=== PATIENT | male | born 1940 | race Caucasian/White ===

== ENCOUNTER → 2023-04-07 12:23 | Outpatient (REF) | payer MEDICARE, SELFPAY ==
[2023-04-07 14:06] LABS: Magnesium 2.3 mg/dl (1.6-2.3)
[2023-04-07 14:37] LABS: TSH Reflex To Free T4 2.06 uIU/ml (0.47-4.68)
[2023-04-07 15:13] LABS: Folate > 20.0 ng/ml (2.76-20); Vitamin B12 858 pg/ml (239-931)
== END ==
LOC: REG 12:23
PROVIDERS: ATTENDING PHYSICIAN Physician Assistant
DX: R25.2 Cramp and spasm (principal)
CPT/HCPCS: 36415; 82607; 82746; 83735; 84443

== ENCOUNTER 2023-04-13 06:33 | Inpatient (IN) | payer MEDICARE, SELFPAY ==
--- NOTE | 2023-03-11 11:00 | CM ---
.
Patient is scheduled for an elective L THR on 04/13/23. Spoke with patient prior to surgery via telephone. Introduced role of Orthopedic Navigator. Patient reports that she lives with his in a two story home. There are two steps to enter and a
flight of steps to the second floor. There is a bedroom and bathroom on the data entry supervisor. He currently functions independently. He uses a cane and rolling walker. He also has a wheel chair. He has never had VN services. PCP is Dr. Colin Cortes.
Discussed orthopedic program and post surgical plans. Reviewed anticipated length of stay and that goal is for him to return home at discharge. Also reviewed outpatient PT. Patient is in agreement with tentative plan and will go directly to
outpatient PT at [facility]. He will have support from his when he goes home.
Patient will complete online education.
Plan: Orthopedic Navigator will remain available to assist with the care of patient and will reassess discharge needs after surgery.
[2023-03-23 12:35] VITALS: BMI 24.0
[2023-03-23 13:56] LABS: Hematocrit 40.2 % (39.0-52.0); Hemoglobin 13.4 g/dL (13.0-18.0); Mean Corp Hgb Conc. 33.3 g/dL (33.0-37.0); Mean Corpuscular Volume 90.1 fL (80.0-94.0); Mean Platelet Volume 9.6 fL (7.4-10.4); Platelet Count 210 10^3/uL (130-400); Red Blood Cell Count 4.46 10^6/uL (4.70-6.10); Red Cell Dist. Width 13.5 % (11.5-14.5); White Blood Cell Count 6.4 10^3/uL (4.8-10.8)
[2023-03-23 14:04] LABS: ALT (SGPT) 40 U/L (0-50); AST (SGOT) 42 U/L (17-59); Albumin 4.3 g/dl (3.5-5.0); Alkaline Phosphatase 78 U/L (38-126); Blood Urea Nitrogen 16 mg/dl (9-20); Calcium 9.5 mg/dl (8.4-10.2); Carbon Dioxide 29 mmol/L (22-30); Chloride 99 mmol/L (98-107); Estimated Creatinine Clearance 86 ml/min; Glucose 83 mg/dl (70-99); Potassium 4.3 mmol/L (3.5-5.1); Sodium 136 mmol/L (135-145); Total Bilirubin 0.7 mg/dl (0.2-1.3); Total Protein 6.7 g/dl (6.3-8.2); eGFR > 60.00
[2023-03-23 15:11] VITALS: BMI 24.0
[2023-04-13] VITALS (11 sets, daily range): BP systolic 93–156; BP diastolic 57–83; PULSE 71–72; O2SAT 98; BMI 24.0; BMI 25.4
[2023-04-13] MEDS: TYLENOL 650 MG PO ×4 (07:40→20:06)
[2023-04-13] MEDS: CELEBREX 200 MG PO (07:40)
[2023-04-13] MEDS: NORMOSOL-R 1000 IV ×2 (08:11→11:49)
[2023-04-13] MEDS: ROXICODONE 5 MG PO (11:52)
[2023-04-13] MEDS: ASPIRIN 325 MG PO (17:43)
[2023-04-13] MEDS: ANCEF 5 IV (17:43)
[2023-04-13] MEDS: TORADOL 15 MG IV (20:05)
[2023-04-13] MEDS: PEPCID 20 MG PO (20:05)
[2023-04-13] MEDS: COLACE 100 MG PO (20:06)
[2023-04-13] MEDS: BACTROBAN 2% OINTMENT 1 APPLIC NASAL (20:06)
[2023-04-13] MEDS: DECADRON 4 MG PO (20:06)
[2023-04-13] MEDS: SENOKOT 17.1999999999999993 MG PO (20:06)
[2023-04-14] MEDS: ANCEF 5 IV (00:33)
[2023-04-14] MEDS: TYLENOL 650 MG PO ×4 (00:33→12:57)
[2023-04-14] MEDS: ROXICODONE 5 MG PO (01:32)
[2023-04-14 03:08] VITALS: BP 121/75
[2023-04-14] MEDS: ROXICODONE 10 MG PO (05:54)
[2023-04-14 06:00] VITALS: BMI 23.5
[2023-04-14 07:12] VITALS: BP 147/84
[2023-04-14] MEDS: CELEBREX 200 MG PO (07:55)
[2023-04-14] MEDS: TORADOL 15 MG IV (07:55)
[2023-04-14] MEDS: DECADRON 4 MG PO (07:55)
[2023-04-14] MEDS: SENOKOT 17.1999999999999993 MG PO (07:55)
[2023-04-14] MEDS: ASPIRIN 325 MG PO (07:56)
[2023-04-14] MEDS: BACTROBAN 2% OINTMENT 1 APPLIC NASAL (07:56)
[2023-04-14] MEDS: COLACE 100 MG PO (07:57)
--- NOTE | 2023-04-14 11:35 | W.PN.ORTHO ---
Today's Communication / Plan
-
d/c
Assessment
.
Distal Motor Intact: Yes
Dressing:
Clean, dry and intact.
Plan
.
Surgery / Date: Stan Lutz 04/13/23
DVT Prophylaxis: Aspirin
Activity:
Out of bed.
PT/OT
Discharge Plan: Home w/ Outpatient PT
Subjective
.
.:
Patient resting comfortably.
Vital Signs and Labs
.
Vital Signs and Labs:
Lab Results
03/23/23 12:16
03/23/23 12:16
Temp Pulse Resp BP Pulse Ox
97.6 F 65 17 147/84 98
04/14/23 07:12 04/14/23 07:12 04/14/23 07:12 04/14/23 07:12 04/14/23 07:12
Non-invasive Hgb result: 12.7
Physical Exam
-
HEENT: No pallor, cyanosis, or jaundice. Throat clear.
NECK: Supple. No JVD.
RESPIRATORY: Lungs clear to auscultation.
CVS: S1, S2 normal. RRR.� No murmur, rub or gallop.
ABDOMEN: Soft, non-tender. No distension. BS+/normal.
EXTREMITIES: strength equal, no calf pain with palpation
DIRECTOR OF PHILANTHROPY: AOx3. No focal deficits. asian art curator grossly intact
--- NOTE | 2023-04-14 11:41 | W.DS.TRANS ---
DC Summary - Community Engagement Leader
-
Discharge Instructions:
Sleep Apnea Risk Intermediate
Discharge Diagnosis/Procedures L MADDIE Dr. Lutz 04/13/23
Diet Diabetic, Carb Controlled
Activity With Walker
Driving Restrictions No driving
Bathing Restrictions OK to Shower
Other Services PT
Instructions:
Stand-Alone Forms: Total Hip/Knee Replacement D/C
Changes to Home Medications: Yes
Discharge Medications:
DC Medications w/original date entered in [facility]
gatifloxacin 0.5 % eye drops 1 drp ophthalmic (eye) Q4D 06/27/20
loteprednol etabonate 0.2 % eye drops,suspension (Alrex) 1 drp OPHTHALMIC Q4D 06/27/20
naproxen sodium 220 mg tablet (Aleve) 220 mg PO QPM PRN pain 06/27/20
vit C 250 mg-vit E 90 mg-zinc 40 mg-copper 1 [id number] capsule (PreserVision AREDS-2) 1 ea PO BID 06/27/20
cholecalciferol (vitamin D3) 25 mcg (1,000 unit) capsule (Vitamin D3) 25 mcg PO DAILY 03/19/23
mupirocin 2 % topical ointment 1 applic topical BID infection prevention #1 tube 03/23/23
Ocusoft 1 applic DAILY 04/13/23
Refresh [place] 3 1 applic BOTH EYES DAILY 04/13/23
Retain Mga Eye Drop 1 applic BOTH EYES DAILY 04/13/23
acetaminophen 325 mg capsule (Tylenol) 650 mg PO QID #2 caps 04/14/23
acetaminophen 500 mg tablet 1,000 mg PO QID scheduled dosing #0 tabs 04/14/23
aspirin 325 mg tablet 325 mg PO DAILY blood clot prevention #1 tab 04/14/23
docusate sodium 100 mg capsule (Colace) 100 mg PO BID stool softner #1 cap 04/14/23
famotidine 20 mg tablet 20 mg PO HS GI prophylaxis #30 tabs 04/14/23
gabapentin 300 mg capsule 300 mg PO HS sleep/pain #10 caps 04/14/23
magnesium hydroxide 400 mg/5 mL oral suspension (Milk of Magnesia) 30 ml PO HS PRN Constipation #1 mL 04/14/23
meloxicam 15 mg tablet 15 mg PO DAILY anti-inflammatory #14 tabs 04/14/23
oxycodone 5 mg tablet 5 - 10 mg PO Q6HPRN PRN 1 tab moderate-2 tabs severe pain #30 tabs 04/14/23
sennosides 8.6 mg tablet (Senokot) 17.2 mg PO BID laxative #2 tabs 04/14/23
Home Medication Changes
famotidine 20 mg tablet 20 mg PO HS GI prophylaxis #30 tabs 04/14/23
gabapentin 300 mg capsule 300 mg PO HS sleep/pain #10 caps 04/14/23
meloxicam 15 mg tablet 15 mg PO DAILY anti-inflammatory #14 tabs 04/14/23
oxycodone 5 mg tablet 5 - 10 mg PO Q6HPRN PRN 1 tab moderate-2 tabs severe pain #30 tabs 04/14/23
Pending Results: No
[2023-04-14 12:00] VITALS: BP 136/74; PULSE 57; O2SAT 99
[2023-04-14 13:10] VITALS: BP 122/62; PULSE 58; O2SAT 97
--- NOTE | 2023-04-14 14:07 | CM ---
Reviewed chart and held rounds with PT, OT and nursing. Patient admitted as planned for elective L THR. Met with patient at bedside. Confirmed information previously obtained for assessment. Also discussed discharge plans. The plan is for patient to
return home at discharge. He will have support from his when he goes home. Patient will go directly to outpatient PT and will go to [facility]. He has an appointment scheduled for Saturday 04/15.. Reviewed need to schedule appointment with PA at
Dr. Lutz office in two weeks for removal of roxy.
Patient has a rolling walker, savita, w/c.
He will use [facility] for discharge prescriptions.
== END 2023-04-14 15:23 | disposition home or self-care (01) | DRG 470 ==
LOC: 2 SOUTH 06:33
PROVIDERS: ADMITTING PHYSICIAN Specialist; FAMILY PHYSICIAN Family Medicine
PROC: 0SRB04A Replacement of Left Hip Joint with Ceramic on Polyethylene Synthetic Substitute, Uncemented, Open Approach (ICD-10-PCS; 2023-04-13)
DX: M16.12 Unilateral primary osteoarthritis, left hip (principal); I50.32 Chronic diastolic (congestive) heart failure; I77.819 Aortic ectasia, unspecified site; E78.5 Hyperlipidemia, unspecified; I11.0 Hypertensive heart disease with heart failure; R73.03 Prediabetes; M51.36 Other intervertebral disc degeneration, lumbar region; I48.0 Paroxysmal atrial fibrillation; Z85.820 Personal history of malignant melanoma of skin; Z95.0 Presence of cardiac pacemaker; Z87.74 Personal history of (corrected) congenital malformations of heart and circulatory system; Z95.2 Presence of prosthetic heart valve
CPT/HCPCS: 36415; 73502; 80053; 83036; 85027; 87070; 97110; 97116; 97162; 97167; 97530; 97535; C1713; C1776

== ENCOUNTER → 2023-10-26 08:28 | Outpatient (REF) | payer MEDICARE, SELFPAY | LOC: RAD 08:28 | PROVIDERS: ATTENDING PHYSICIAN Internal Medicine Cardiovascular Disease; FAMILY PHYSICIAN Family Medicine | DX: I77.819 Aortic ectasia, unspecified site (principal); I77.0 Arteriovenous fistula, acquired | CPT/HCPCS: 93931 ==

== ENCOUNTER → 2023-11-20 10:45 | Outpatient (REF) | payer MEDICARE, SELFPAY ==
[2023-11-20 12:07] LABS: Blood Urea Nitrogen 19 mg/dl (9-20); Calcium 9.8 mg/dl (8.4-10.2); Carbon Dioxide 22 mmol/L (22-30); Chloride 103 mmol/L (98-107); Glucose 99 mg/dl (70-99); Potassium 4.8 mmol/L (3.5-5.1); Sodium 139 mmol/L (135-145); eGFR > 60.00
== END ==
LOC: REG 10:45
PROVIDERS: ATTENDING PHYSICIAN Surgery Vascular Surgery; PRIMARYCARE PHYSICIAN Family Medicine
DX: R22.1 Localized swelling, mass and lump, neck (principal)
CPT/HCPCS: 36415; 80048

== ENCOUNTER → 2023-11-25 11:34 | Outpatient (REF) | payer MEDICARE, SELFPAY | LOC: HWRAD 11:34 | PROVIDERS: ATTENDING PHYSICIAN Surgery Vascular Surgery; FAMILY PHYSICIAN Family Medicine; REFERRING PHYSICIAN Internal Medicine Cardiovascular Disease | DX: R22.1 Localized swelling, mass and lump, neck (principal) | CPT/HCPCS: 71275; Q9967 ==

== ENCOUNTER → 2023-12-11 06:37 | Outpatient (REF) | payer MEDICARE, SELFPAY | LOC: RAD 06:37 | PROVIDERS: ATTENDING PHYSICIAN Internal Medicine Cardiovascular Disease; FAMILY PHYSICIAN Family Medicine | DX: I77.819 Aortic ectasia, unspecified site (principal) | CPT/HCPCS: 76770 ==

== ENCOUNTER → 2024-09-05 10:46 | Outpatient (REF) | payer MEDICARE, SELFPAY ==
[2024-09-05 12:13] LABS: Hematocrit 43.3 % (39.0-52.0); Hemoglobin 14.3 g/dL (13.0-18.0); Mean Corp Hgb Conc. 33.0 g/dL (33.0-37.0); Mean Corpuscular Volume 91.5 fL (80.0-94.0); Nucleated Red Blood Cells % 0 % (-); Platelet Count 222 10^3/uL (130-400); Red Cell Dist. Width 13.2 % (11.5-14.5)
[2024-09-05 13:53] LABS: ALT (SGPT) 34 U/L (0-50); AST (SGOT) 37 U/L (17-59); Albumin 4.8 g/dl (3.5-5.0); Alkaline Phosphatase 78 U/L (38-126); Blood Urea Nitrogen 16 mg/dl (9-20); Calcium 9.5 mg/dl (8.4-10.2); Carbon Dioxide 27 mmol/L (22-30); Chloride 105 mmol/L (98-107); Glucose 105 mg/dl (70-99); HDL Cholesterol 56 mg/dl; LDL Cholesterol, Calculated 141 mg/dl; Potassium 4.7 mmol/L (3.5-5.1); Sodium 136 mmol/L (135-145); Total Protein 7.5 g/dl (6.3-8.2); Very Low Density Lipoprotein 16 mg/dl (0-30); eGFR > 60.00
[2024-09-05 14:21] LABS: PSA, Total - Screen 3.42 ng/ml (0.0-4.0)
== END ==
LOC: REG 10:46
PROVIDERS: ATTENDING PHYSICIAN Family Medicine
DX: I10 Essential (primary) hypertension (principal); I48.0 Paroxysmal atrial fibrillation; Z00.00 Encounter for general adult medical examination without abnormal findings
CPT/HCPCS: 36415; 80053; 80061; 85025; G0103